=== PATIENT | female | born 1960 | race Two or more races ===

== ENCOUNTER → 2017-01-22 | Outpatient (CLI) | payer BC ==
--- NOTE | ~2017-01-22 | CR7 ---
[facility] A Service of [facility] & [facility] RADIOLOGY TEXT RESULTS PATIENT: KEVIN CHAVIRA LOCATION: [facility] : 64 UNIT #: [id number] AGE: [address]: Emilia Miles MD SEX: F ORDER DR: [id number] [facility] [address] [place], [place] [address] [id number] O MR#: [id number] Acc #: [id number] NAME: KEVIN CHAVIRA : 1960 SEX: F STUDY DATE/TIME: 01/22/2017 12:41 UNIT: [facility] ROOM: STUDY DESCRIPTION: CR Abdomen Single AP View Attending Physician: Emilia Miles M.D. Referring Physician: Emilia Miles M.D. Ordering Physician: Emilia Miles M.D. Primary Care Physician: Emilia Miles M.D. MEDICAL IMAGING REPORT This report is preliminary unless electronic signature is present EXAM Abdominal radiograph. HISTORY Renal calculi. PROCEDURE Supine view of the abdomen. COMPARISON None FINDINGS No visible radiodense urinary system calculus. Moderate colonic stool. IMPRESSION No visible radiodense urinary system calculus. Dictated by... Adam Melgar M.D. THIS IS AN ELECTRONICALLY VERIFIED REPORT Adam Melgar M.D. at 01/23/2017 9:39 AM Nakul TD: 01/22/2017 14:35 JOB #: [id number] MEDICAL IMAGING REPORT Page 1 of 1 COPY
== END | disposition home or self-care (01) ==
LOC: CRAD 12:18
DX: R31.9 Hematuria, unspecified (principal)
CPT/HCPCS: 74000